=== PATIENT | male | born 1965 | race Caucasian/White ===

== ENCOUNTER 2022-10-04 12:00 | Outpatient (OUT) | payer BC, SELFPAY ==
--- NOTE | 2022-10-04 12:08 | XR_ITS ---
[facility] [id number] Patient Name: SUDEEP JACOBS MRN: [id number] date: 1965 Sex: M Assigned Patient Location: [facility] Current Patient Location: [facility] Accession/Order Number: [id number] Exam Date: 10/04/2022 12:08 Report Date: 10/04/2022 16:11 At the request of: JOCELYN KELLY Procedure: XR abdomen 1V EXAMINATION: XR abdomen 1V HISTORY: Kidney stone, N20.0 , follow-up COMPARISON: XR KUB 03/09/2022 FINDINGS: KIDNEY/URETER - RIGHT: 9 mm calcification projecting over inferior pole of kidney. KIDNEY/URETER - LEFT: Several small stones projecting over left kidney. PELVIS: No visible ureteral stones. BOWEL: No abnormal dilation or deviation. BONES: No acute abnormality. OTHER: Negative. No abnormal gaseous collections. IMPRESSION: 1. Bilateral nephrolithiasis; slightly increased. Electronically authenticated by: EDVIN JORGE Date: 10/04/2022 16:11
== END 2022-10-04 12:01 ==
LOC: RAD 12:04
PROVIDERS: PCP Internal Medicine
DX: N20.0 Calculus of kidney (principal)
CPT/HCPCS: 74018

== ENCOUNTER 2023-04-07 11:15 | Outpatient (OUT) | payer BC, SELFPAY ==
--- NOTE | 2023-04-07 11:24 | XR_ITS ---
[address] [address] Patient Name: SUDEEP JACOBS MRN: [id number] date: 1965 Sex: M Assigned Patient Location: [facility] Current Patient Location: [facility] Accession/Order Number: [id number] Exam Date: 04/07/2023 11:28 Report Date: 04/07/2023 15:37 At the request of: BECKY GENAO Procedure: XR abdomen 1V EXAMINATION: XR abdomen 1V HISTORY: N20.0 COMPARISON: 10/04/2022 FINDINGS: KIDNEY/URETER - RIGHT: 9 mm calcification lower pole, nephrolith KIDNEY/URETER - LEFT: Upper and lower pole nephrolithiasis measuring up to 6 mm PELVIS: No visible ureteral calcifications. Any visible calcifications favor phleboliths. BOWEL: No abnormal dilation or deviation. BONES: No acute abnormality. OTHER: Negative. No abnormal gaseous collections. XR/XR abdomen 1V IMPRESSION: Stable bilateral nephrolithiasis Electronically authenticated by: LIBBY LEGER Date: 04/07/2023 15:37
== END 2023-04-07 11:16 | disposition home or self-care (01) ==
LOC: RAD 11:15
PROVIDERS: PCP Internal Medicine; Visit Provider Physician Assistant
DX: N20.0 Calculus of kidney (principal)
CPT/HCPCS: 74018